=== PATIENT | female | born 1995 | race Caucasian/White ===

== ENCOUNTER 2020-03-07 01:19 | Inpatient (IN) | payer OTHER ==
--- NOTE | 2020-03-07 01:41 | PDOC ---
History of Present Illness - General Chief Complaint: Pain, Acute Stated Complaint: ABD PAIN Time Seen by Provider: 03/07/20 01:41 History Source: Patient Exam Limitations: No Limitations - History of Present Illness Initial Comments: 03/07/20 02:05 24y previously healthy F presenting w progressive worsening intermittent stabbing epigastric and RLQ pain, chills, nausea. Took antacid w/o relief. Denies cough, chest pain, SOB, vomiting, vaginal bleeding/discharge. Past History - Medical History Allergies/Adverse Reactions: Allergies Allergy/AdvReac Type Severity Reaction Status Date / Time No Known Allergies Allergy Verified 03/07/20 01:26 Home Medications: Ambulatory Orders NK [No Known Home Medication] 03/07/20 COPD: No - Immunization History Immunization Up to Date: Yes - Psycho-Social/Smoking History Smoking History: Never smoked Have you smoked in the past 12 months: No Information on smoking cessation initiated: No - Substance Abuse Hx (Audit-C & DAST Scrn) How often the patient has a drink containing alcohol: Never Score: In Men: 4 or > Positive; In Women: 3 or > Positive: 0 Screen Result (Pos requires Nsg. Audit-10AR): Negative In the last yr the pt used illegal drug/Rx for NonMed reason: No Score: Yes response is considered Positive: 0 Screen Result (Positive result requires Nsg. DAST-10): Negative Review of Systems - Review of Systems Constitutional: No: Chills, Fever HEENTM: No: Eye Pain, Nose Congestion Respiratory: No: Cough, Shortness of Breath Cardiac (ROS): No: Chest Pain, Lightheadedness ABD/GI: Yes: Nausea. No: Abdominal Distended, Constipated, Diarrhea, Vomiting : No: Burning, Dysuria Musculoskeletal: No: Back Pain, Joint Pain Integumentary: No: Bruising, Dryness Neurological: No: Headache, Seizure Psychiatric: No: Anxiety, Depression Endocrine: No: Intolerance to Cold, Intolerance to Heat Hematologic/Lymphatic: No: Anemia, Blood Clots *Physical Exam - Vital Signs Last Vital Signs Temp Pulse Resp BP Pulse Ox 97.8 F 84 20 122/82 98 03/07/20 01:27 03/07/20 01:27 03/07/20 01:27 03/07/20 01:27 07/26/20 01:27 - Physical Exam General Appearance: Yes: Nourished, Appropriately Dressed, Moderate Distress HEENT: positive: EOMI, ERNST, Normal Voice, Hearing Grossly Normal. negative: Scleral Icterus (R), Scleral Icterus (L) Respiratory/Chest: positive: Lungs Clear, Normal Breath Sounds. negative: Chest Tender, Respiratory Distress Cardiovascular: positive: Regular Rhythm, Regular Rate, S1, S2. negative: Edema, Murmur Gastrointestinal/Abdominal: positive: Normal Bowel Sounds, Tender (mild epigastric, moderate RLQ), Flat, Guarding (RLQ). negative: Organomegaly Musculoskeletal: negative: CVA Tenderness (R), CVA Tenderness (L) Integumentary: positive: Normal Color, Warm Neurologic: positive: Fully Oriented, Alert, Normal Mood/Affect, Normal Response ED Treatment Course - LABORATORY CBC & Chemistry Diagram: 03/07/20 02:12 03/07/20 02:12 Medical Decision Making - Medical Decision Making 03/07/20 04:19 CT A/P - acute appendicits, no abscess/free air EKG - NSR, HR 83, QTc 462, no ST changes WBC 14 --- 24y previously healthy F presenting w progressive worsening intermittent stabbing epigastric and RLQ pain, chills, nausea d/t acute appendicitis on CT No evidence of (neg) vs pancreatitis (lipase wnl) Given pepcid, zofran, morphine, 1L NS, zosyn, maintenance NS Consulted Dr Pink surgery - NPO, give zosyn, will evaluate Admit m/s hospitalist acute appendicitis PCP Cathy Discharge - Discharge Information Problems reviewed: Yes Clinical Impression/Diagnosis: Acute appendicitis Qualifiers: Acute appendicitis type: with localized peritonitis Appendicitis gangrene pres ence: without gangrene Appendicitis perforation presence: without perforation Appendicitis abscess presence: without abscess Qualified Code(s): K35.30 - Acute appendicitis with localized peritonitis, without perforation or gangrene Condition: Improved - Admission No - Follow up/Referral Referrals: Mary Morgan MD [Primary Care Provider] - - Patient Discharge Instructions - Post Discharge Activity
[2020-03-07] MEDS ORDERED: SODIUM CHLORIDE 0.9% 500 ML INFUS.BAG IV ONE (02:04)
[2020-03-07] MEDS ORDERED: ONDANSETRON 4 MG/2 ML VIAL IVPUSH ONE (02:04)
[2020-03-07] MEDS ORDERED: FAMOTIDINE 20 MG/50 ML IVPB 20 MG/50 ML MG IVPB ONE (02:04)
[2020-03-07] MEDS ORDERED: morphine CARPU-JECT 4 MG/1 ML DISP.SYRIN IVPUSH ONE (02:04)
[2020-03-07] MEDS ORDERED: MORPHINE SULFATE 2 MG/ML VIAL ONE (02:14)
[2020-03-07 02:27] LABS: BASO % 0.4 % (0-2.0); EOS % 0.7 % (0-4.5); HEMATOCRIT 40.1 % (32.4-45.2); HEMOGLOBIN 13.2 GM/dL (10.7-15.3); LYMPH % 17.6 % (8-40); MCH 31.2 pg (25.7-33.7); MCHC 32.9 g/dl (32.0-36.0); MEAN CELL VOLUME 94.7 fl (80-96); MEAN PLT VOLUME 8.6 fl (7.5-11.1); MONO % 5.6 % (3.8-10.2); NEUT % 75.7 % (42.8-82.8); PLATELET COUNT 221 K/MM3 (134-434); RBC 4.24 M/mm3 (3.60-5.2); RDW 13.2 % (11.6-15.6); WHITE BLOOD COUNT 14.5 K/mm3 (4.0-10.0)
[2020-03-07 02:39] LABS: INR 1.26 (0.83-1.09); PROTHROMBIN TIME (PATIENT) 14.9 SEC (9.7-13.0)
[2020-03-07 02:51] LABS: ALBUMIN 3.8 g/dl (3.4-5.0); BILIRUBIN,TOTAL 0.6 mg/dL (0.2-1); BLOOD UREA NITROGEN 19.9 mg/dL (7-18); CREATININE 1.1 mg/dL (0.55-1.3); POTASSIUM 3.9 mmol/L (3.5-5.1); TOT PROT 7.6 g/dl (6.4-8.2)
--- NOTE | 2020-03-07 03:35 | PDOC ---
Documentation entered by Osbaldo Downing SCRIBE, acting as scribe for Rebecca Coto MD. Rebecca Coto MD: This documentation has been prepared by the scribe, Osbaldo Downing SCRIBE, under my direction and personally reviewed by me in its entirety. I confirm that the documentation accurately reflects all work, treatment, procedures, and medical decision making performed by me. Attending Attestation - Resident Resident Name: Dima Morales - ED Attending Attestation I have performed the following: I have examined & evaluated the patient, The case was reviewed & discussed with the resident, I agree w/resident's findings & plan, Exceptions are as noted - HPI HPI: 24 yo F no significant PMH presents with abrupt onset of epigastric pain after eating dinner last night. Initially epigastric, later radiated to RLQ. Associated with chills, nausea. Denies vomiting, but noted that she was "spitting up" bloody material. She took rose seltzer without relief. - Physicial Exam PE: GENERAL: Awake, alert, and fully oriented, in no acute distress HEAD: No signs of trauma EYES: PERRLA, EOMI, sclera anicteric, conjunctiva clear ENT: Auricles normal inspection, hearing grossly normal, nares patent, oropharynx clear without exudates. Moist mucosa NECK: Normal ROM, supple, no lymphadenopathy, JVD, or masses LUNGS: Breath sounds equal, clear to auscultation bilaterally. No wheezes, and no crackles HEART: Regular rate and rhythm, normal S1 and S2, no murmurs, rubs or gallops ABDOMEN: Soft, +RLQ tenderness, +hyperactive bowel sounds. +Guarding, no rebound . No masses EXTREMITIES: Normal range of motion, no edema. No clubbing or cyanosis. No cords, erythema, or tenderness NEUROLOGICAL: Cranial nerves II through XII grossly intact. Normal speech, norm al gait. Motor and sensation intact SKIN: Warm, dry, normal turgor, no rashes or lesions noted. - Medical Decision Making Pt with abrupt onset abd pain, RLQ. R/o appy. Discharge - Discharge Information Problems reviewed: Yes Clinical Impression/Diagnosis: Acute appendicitis Qualifiers: Acute appendicitis type: with localized peritonitis Appendicitis gangrene presence: without gangrene Appendicitis perforation presence: without perforation Appendicitis abscess presence: without abscess Qualified Code(s): K35.30 - Acute appendicitis with localized peritonitis, without perforation or gangrene Condition: Improved - Follow up/Referral - Patient Discharge Instructions - Post Discharge Activity
[2020-03-07] MEDS ORDERED: SODIUM CHLORIDE 1,000 ML IV SCH (04:15)
[2020-03-07] MEDS ORDERED: PIPERACILLIN/TAZOB 4.5 GM 4.5 GM in DEXTROSE 5%-WATER 100 ML IVPB ONE (04:15)
[2020-03-07 04:18] LABS: URINE APPEARANCE CLEAR; URINE BILIRUBIN NEGATIVE (NEGATIVE); URINE COLOR YELLOW; URINE GLUCOSE (UA) NEGATIVE (NEGATIVE); URINE KETONE 15 mg/dl (NEGATIVE)
[2020-03-07 04:19] LABS: PH,URINE 6.5 (5.0-8.0); URINE LEUK ESTERASE N (NEGATIVE); URINE NITRITE NEGATIVE (NEGATIVE); URINE PROTEIN N (NEGATIVE)
[2020-03-07 04:23] LABS: EPI CELLS 67 /uL (0-25.1); HYALINE CASTS 2 /uL (0-3.1); URINE BACTERIA 798 /uL (0-1359); URINE RBC 3 /uL (0-23.9); URINE WBC 78 /uL (0-25.8)
[2020-03-07] MEDS ORDERED: PIPERACILLIN/TAZOB 4.5 GM 4.5 GM/100 ML BAG IVPB ONE (04:39)
[2020-03-07 05:57] VITALS: BMI 28.1
--- NOTE | 2020-03-07 06:05 | PN ---
Teaching Attending Note Name of Resident: Talha Jacobo ATTENDING PHYSICIAN STATEMENT I saw and evaluated the patient. I reviewed the resident's note and discussed the case with the resident. I agree with the resident's findings and plan as documented. SUBJECTIVE: OBJECTIVE: ASSESSMENT AND PLAN: 24 year old Female with no significant PMHx who presents with abrupt onset of RLQ epigastric pain. CT concerning for acute appendicitis No evidence for acute abdomen Agree with NPO, IV fluid hydration, zosyn Await surgery evaluation
--- NOTE | 2020-03-07 09:41 | PN ---
Progress Note (short form) - Note Progress Note: surgery 24f admitted with uncomplicated appendicitis. covid status unknown. no fever. plan- cont npo and iv zosyn. unless patient is failing medical management would not proceed with surgery unless covid status is negative as surgery during covid infection increases risk of respiratory failure, thromboembolic events, and . once covid status determined will make further recommendation. request for covid test made at 4am 03/07. currentlly pending.
[2020-03-07] MEDS ORDERED: morphine SULFATE 4 MG/ML VIAL IVPUSH PRN (09:46)
[2020-03-07] MEDS ORDERED: ACETAMINOPHEN 1000 MG/100 ML VIAL (NON FORMULARY) IVPB PRN (09:47)
[2020-03-07] MEDS ORDERED: ONDANSETRON 4 MG/2 ML VIAL IVPB PRN (09:49)
[2020-03-07] MEDS ORDERED: DEXTROSE 5%-WATER - 50 ML IVPB ONE ×2 (09:52→16:41)
[2020-03-07] MEDS ORDERED: PIPERACILLIN/TAZOBACTAM 3.375 GM VIAL IVPB ONE ×2 (09:52→16:41)
--- NOTE | 2020-03-07 09:57 | HP ---
CHIEF COMPLAINT: RLQ pain PCP: HISTORY OF PRESENT ILLNESS: Pt endorsed having weakness since the beginning of the week, but began having intermittent stabbing abdominal pain starting yesterday. At first the pain was in the epigastric area, and later involved her RLQ. She endorsed chills & nausea, but denied fevers. Sharita-seltzer and two 500 mg Tylenlol pills did not improve her symptoms. ER course was notable for: (1)BUN 19.9; WBCs 14 (2)UA: WBC 78, bacteria 798 (3) EKG: Normal sinus rhythm, possible L atrial enlargment; QTC 420, 65 bpm (4)CTAP: acute appendicictis; no abscess/free air (5) ED gave pepcid, zofran morphine, 1 L NS, zosyn, NPO Recent Travel: denies PAST MEDICAL HISTORY: prone to keloid formation LMP: end January 2020 PAST SURGICAL HISTORY: denies Social History: Smoking:denies Alcohol: socially Drugs: denies lives w/ her and his mother Allergies No Known Allergies Allergy (Verified 03/07/20 01:26) HOME MEDICATIONS: Home Medications Medication Instructions Recorded NK [No Known Home Medication] 03/07/20 REVIEW OF SYSTEMS CONSTITUTIONAL: Absent: fever, chills, diaphoresis, generalized weakness, malaise, loss of appetite, weight change HEENT: Absent: rhinorrhea, nasal congestion, throat pain, throat swelling, difficulty swallowing, mouth swelling, ear pain, eye pain, visual changes CARDIOVASCULAR: Absent: chest pain, syncope, palpitations, irregular heart rate, lightheadedness, peripheral edema RESPIRATORY: Absent: cough, shortness of breath, dyspnea with exertion, orthopnea, wheezing, stridor, hemoptysis GASTROINTESTINAL: abdominal pain, but improved after morphine Absent: abdominal distension, nausea, vomiting, diarrhea, constipation, melena, hematochezia GENITOURINARY: Absent: dysuria, frequency, urgency, hesitancy, hematuria, flank pain, genital pain MUSCULOSKELETAL: Absent: myalgia, arthralgia, joint swelling, back pain, neck pain SKIN: Absent: rash, itching, pallor HEMATOLOGIC/IMMUNOLOGIC: Absent: easy bleeding, easy bruising, lymphadenopathy, frequent infections ENDOCRINE: Absent: unexplained weight gain, unexplained weight loss, heat intolerance, cold intolerance NEUROLOGIC: Absent: headache, focal weakness or paresthesias, dizziness, unsteady gait, seizure, mental status changes, bladder or bowel incontinence PSYCHIATRIC: Absent: anxiety, depression, suicidal or homicidal ideation, hallucinations. PHYSICAL EXAMINATION Vital Signs - 24 hr 03/07/20 03/07/20 03/07/20 01:27 04:28 04:33 Temperature 97.8 F 97.3 F L Pulse Rate 84 Pulse Rate [ 80 Left Radial] Respiratory 20 20 Rate Blood Pressure 122/82 Blood Pressure 132/78 [Left Arm] O2 Sat by Pulse 98 99 99 Oximetry (%) 03/07/20 03/07/20 03/07/20 05:40 05:45 05:52 Temperature 98.8 F 98.8 F Pulse Rate 73 73 Pulse Rate [ Left Radial] Respiratory 18 18 Rate Blood Pressure 107/48 L 107/48 L Blood Pressure [Left Arm] O2 Sat by Pulse 99 98 98 Oximetry (%) GENERAL: Awake, alert, and fully oriented, in no acute distress. HEENT: Normal with no signs of trauma. No lid lag.Ears normal, nares patent. MMM LUNGS: Breath sounds equal, clear to auscultation bilaterally. No wheezes, and no crackles. No accessory muscle use. HEART: Regular rate and rhythm, normal S1 and S2 without murmur, rub or gallop. ABDOMEN: Soft, not distended, normoactive bowel sounds. TTP in epigastric and RLQ, no guarding, + rebound MUSCULOSKELETAL: Normal range of motion at all joints. No bony deformities or tenderness. No CVA tenderness. UPPER EXTREMITIES: 2+ pulses, warm, well-perfused. No cyanosis. No clubbing. No peripheral edema. LOWER EXTREMITIES: 2+ pulses, warm, well-perfused. No calf tenderness. No peripheral edema. NEUROLOGICAL: Normal speech. Normal gait. PSYCHIATRIC: Cooperative. Good eye contact. Appropriate mood and affect. Laboratory Results - last 24 hr 03/07/20 03/07/20 03/07/20 02:12 02:12 02:12 WBC 14.5 H RBC 4.24 Hgb 13.2 Hct 40.1 MCV 94.7 MCH 31.2 MCHC 32.9 RDW 13.2 Plt Count 221 MPV 8.6 Absolute Neuts (auto) 11.0 H Neutrophils % 75.7 Lymphocytes % 17.6 Monocytes % 5.6 Eosinophils % 0.7 Basophils % 0.4 Nucleated RBC % 0 PT with INR 14.90 H INR 1.26 H Sodium Potassium Chloride Carbon Dioxide Anion Gap BUN Creatinine Est GFR (CKD-EPI)AfAm Est GFR (CKD-EPI)NonAf Random Glucose Calcium Total Bilirubin AST ALT Alkaline Phosphatase Total Protein Albumin Lipase Serum , Qual Negative Urine Color Urine Appearance Urine pH Ur Specific [place] Urine Protein Urine Glucose (UA) Urine Ketones Urine Blood Urine Nitrite Urine Bilirubin Urine Urobilinogen Ur Leukocyte Esterase Urine WBC (Auto) Urine RBC (Auto) Urine Casts (Auto) U Epithel Cells (Auto) Urine Bacteria (Auto) Blood Type Antibody Screen 03/07/20 03/07/20 03/07/20 02:12 02:12 03:22 WBC RBC Hgb Hct MCV MCH MCHC RDW Plt Count MPV Absolute Neuts (auto) Neutrophils % Lymphocytes % Monocytes % Eosinophils % Basophils % Nucleated RBC % PT with INR INR Sodium 138 Potassium 3.9 Chloride 107 Carbon Dioxide 25 Anion Gap 7 L BUN 19.9 H Creatinine 1.1 Est GFR (CKD-EPI)AfAm 80.81 Est GFR (CKD-EPI)NonAf 69.72 Random Glucose 89 Calcium 9.0 Total Bilirubin 0.6 AST 13 L ALT 13 Alkaline Phosphatase 54 Total Protein 7.6 Albumin 3.8 Lipase 98 Serum , Qual Urine Color Yellow Urine Appearance Clear Urine pH 6.5 Ur Specific [place] 1.065 H Urine Protein N Urine Glucose (UA) Negative Urine Ketones 15 mg/dl Urine Blood N Urine Nitrite Negative Urine Bilirubin Negative Urine Urobilinogen 1.0 Ur Leukocyte Esterase N Urine WBC (Auto) 78 Urine RBC (Auto) 3 Urine Casts (Auto) 2 U Epithel Cells (Auto) 67 Urine Bacteria (Auto) 798 Blood Type A POSITIVE Antibody Screen Negative ASSESSMENT/PLAN: 24 F PMH keloids p/w epigastric & RLQ pain. Admitted for appendicitis. #Appendicitis -CTAP: acute appendicitis; no abscess/free air -sgy c/s appreciated. c/w IV Zosyn -c/w zofran & morphine -NPO #DVT ppx SCDs #FEN NS monitor lytes NPO #DISPO maintain med surg Visit type - Emergency Visit Emergency Visit: Yes ED Registration Date: 03/07/20 Care time: The patient presented to the Emergency Department on the above date and was hospitalized for further evaluation of their emergent condition. - New Patient This patient is new to me today: Yes Date on this admission: 03/07/20 - Critical Care Critical Care patient: No ATTENDING PHYSICIAN STATEMENT I saw and evaluated the patient. I reviewed the resident's note and discussed the case with the resident. I agree with the resident's findings and plan as documented. SUBJECTIVE: OBJECTIVE: ASSESSMENT AND PLAN:
[2020-03-07] MEDS ORDERED: PIPERACILLIN/TAZOB 3.375 GM 3.375 GM in DEXTROSE 5%-WATER - 50 ML IVPB SCH (10:00)
[2020-03-07 10:01] LABS: BASO % 0.3 % (0-2.0); EOS % 0.1 % (0-4.5); HEMATOCRIT 38.4 % (32.4-45.2); HEMOGLOBIN 12.6 GM/dL (10.7-15.3); LYMPH % 15.4 % (8-40); MCH 31.1 pg (25.7-33.7); MCHC 32.7 g/dl (32.0-36.0); MEAN CELL VOLUME 95.2 fl (80-96); MEAN PLT VOLUME 8.8 fl (7.5-11.1); MONO % 7.1 % (3.8-10.2); NEUT % 77.1 % (42.8-82.8); PLATELET COUNT 208 K/MM3 (134-434); RBC 4.03 M/mm3 (3.60-5.2); RDW 13.2 % (11.6-15.6); WHITE BLOOD COUNT 12.3 K/mm3 (4.0-10.0)
[2020-03-07 10:29] LABS: ALBUMIN 3.3 g/dl (3.4-5.0); BILIRUBIN,TOTAL 0.8 mg/dL (0.2-1); BLOOD UREA NITROGEN 14.3 mg/dL (7-18); CALCIUM 8.2 mg/dL (8.5-10.1); MAGNESIUM 2.1 mg/dL (1.8-2.4); PHOSPHOROUS 3.8 mg/dL (2.5-4.9); TOT PROT 6.6 g/dl (6.4-8.2)
--- NOTE | 2020-03-07 12:52 | CON.ID ---
Consult Consult Specialty:: infectious disease Referred by:: hospitalist Reason for Consultation:: appendicitis - History of Present Illness Chief Complaint: abdominal pain History of Present Illness: 24 yo female otherwise healthy, never hospitalized developed malaise and fatigue on Sunday- no cough went to [place] and got covid screened on sunday she develped LLQ pain and midepigastric pain and vomiting and came to ED no fevers +dysuria never hospitalized - History Source History Provided By: Patient Limitations to Obtaining History: No Limitations - Past Medical History Infectious Disease: Yes: Other (UTI) - Past Surgical History Past Surgical History: Yes: None - Alcohol/Substance Use Hx Alcohol Use: No - Smoking History Smoking history: Never smoked Have you smoked in the past 12 months: No - Social History Usual Living Arrangement: With Spouse ADL: Independent Occupation: working from home Place of : [facility] History of Recent Travel: No Home Medications - Allergies Allergies/Adverse Reactions: Allergies Allergy/AdvReac Type Severity Reaction Status Date / Time No Known Allergies Allergy Verified 03/07/20 01:26 - Home Medications Home Medications: Ambulatory Orders NK [No Known Home Medication] 03/07/20 Family Medical History Family History: Unremarkable Review of Systems - Review of Systems Constitutional: denies: Fever Eyes: reports: No Symptoms HENT: reports: No Symptoms Neck: reports: No Symptoms Cardiovascular: reports: No Symptoms Respiratory: reports: No Symptoms Gastrointestinal: reports: Abdominal Pain, Vomiting. denies: Diarrhea Genitourinary: reports: Dysuria Physical Exam Vital Signs: Vital Signs Temperature 98.8 F 03/07/20 05:52 Pulse Rate 73 03/07/20 05:52 Respiratory Rate 18 03/07/20 05:52 Blood Pressure 107/48 L 03/07/20 05:52 O2 Sat by Pulse Oximetry (%) 98 03/07/20 05:52 Constitutional: Yes: Well Nourished, No Distress Eyes: Yes: Conjunctiva Clear HENT: Yes: Atraumatic, Normocephalic Neck: Yes: Supple Cardiovascular: Yes: Regular Rate and Rhythm Respiratory: Yes: Regular, CTA Bilaterally Gastrointestinal: Yes: Normal Bowel Sounds, Soft, Tenderness (RLQ and midepigastric) ...Rectal Exam: Yes: Deferred Edema: No Integumentary: Yes: WNL Psychiatric: Yes: Alert, Oriented Labs: CBC, BMP 03/07/20 08:49 03/07/20 08:49 Imaging - Results Cat Scan: Report Reviewed Problem List - Problems (1) Acute appendicitis Code(s): K35.80 - UNSPECIFIED ACUTE APPENDICITIS Qualifiers: Acute appendicitis type: with localized peritonitis Appendicitis gangrene presence: without gangrene Appendicitis perforation presence: without perforation Appendicitis abscess presence: without abscess Qualified Code(s): K35.30 - Acute appendicitis with localized peritonitis, without perforation or gangrene (2) UTI (urinary tract infection) Code(s): N39.0 - URINARY TRACT INFECTION, SITE NOT SPECIFIED Assessment/Plan continue zosyn for surgical f/u f/u covid pcr f/u cultures
[2020-03-07] MEDS: PIPERACILLIN/TAZOB 3.375 GM 3.375 GM in DEXTROSE 5%-WATER - 50 ML IVPB SCH ×2 (14:05→17:17)
--- NOTE | 2020-03-07 16:04 | PN ---
Progress Note (short form) - Note Progress Note: patient seen and examined at bedside with her mom at bedside. Endorses abdominal pain is well controlled with morphine. THirsty. Afebrile. Last time she vomited was this Am and it was bilious. Nausea controlled with Zofran. Started on Zosyn. ID consult noted and appreciated. Denies cough. Went to [place] 2 weeks ago. No COVID-19 symptoms. On exam AAOx3. NAD. Dry mucous membranes. CTAB RRR S1 S2 no murmurs ABD is soft, TTP in all quadrants to light palpation but most tenderness in RLQ. no edema 2+ DP pulses bilaterally Continue Zosyn NPO IVF Antiemetics pain control for appendectomy pending COVID-19 results change IVF to LR and increase from 125ml/hr to 150ml/hr. Hyperchloremic Discussed with Dr. Pink over the phone. for further information please see admitting H&P done earlier today. Visit type - Emergency Visit Emergency Visit: Yes ED Registration Date: 03/07/20 Care time: The patient presented to the Emergency Department on the above date and was hospitalized for further evaluation of their emergent condition. - New Patient This patient is new to me today: Yes Date on this admission: 03/07/20 - Critical Care Critical Care patient: No
[2020-03-07] MEDS ORDERED: PT OWN MED DRAWER 7, Y5N ONE (17:14)
[2020-03-07] MEDS: LACTATED RINGERS SOLUTION 1,000 ML/1,000 ML INFUS.BAG IV SCH (17:16)
--- NOTE | 2020-03-07 17:23 | EKG ---
Test Reason : Blood Pressure : / mmHG Vent. Rate : 065 BPM Atrial Rate : 065 BPM P-R Int : 176 ms QRS Dur : 078 ms QT Int : 404 ms P-R-T Axes : 066 078 028 degrees QTc Int : 420 ms NORMAL SINUS RHYTHM POSSIBLE LEFT ATRIAL ENLARGEMENT BORDERLINE ECG NO PREVIOUS ECGS AVAILABLE Confirmed by MD Tari, Walter ([id number]) on 03/07/2020 5:22:35 PM Referred By: Confirmed By:Walter Marc MD
[2020-03-08] MEDS ORDERED: PIPERACILLIN/TAZOBACTAM 3.375 GM VIAL IVPB ONE ×3 (00:33→18:31)
[2020-03-08] MEDS ORDERED: DEXTROSE 5%-WATER - 50 ML IVPB ONE ×3 (00:33→18:32)
[2020-03-08] MEDS: PIPERACILLIN/TAZOB 3.375 GM 3.375 GM in DEXTROSE 5%-WATER - 50 ML IVPB SCH ×4 (02:17→18:42)
[2020-03-08 08:26] LABS: BASO % 0.4 % (0-2.0); EOS % 0.7 % (0-4.5); HEMATOCRIT 34.9 % (32.4-45.2); HEMOGLOBIN 11.6 GM/dL (10.7-15.3); LYMPH % 20.6 % (8-40); MCH 31.5 pg (25.7-33.7); MCHC 33.3 g/dl (32.0-36.0); MEAN CELL VOLUME 94.7 fl (80-96); MEAN PLT VOLUME 8.7 fl (7.5-11.1); MONO % 7.2 % (3.8-10.2); NEUT % 71.1 % (42.8-82.8); PLATELET COUNT 188 K/MM3 (134-434); RBC 3.68 M/mm3 (3.60-5.2)
[2020-03-08 08:44] LABS: ALBUMIN 2.9 g/dl (3.4-5.0); BILIRUBIN,TOTAL 1.1 mg/dL (0.2-1); BLOOD UREA NITROGEN 8.8 mg/dL (7-18); CALCIUM 7.9 mg/dL (8.5-10.1); CREATININE 0.9 mg/dL (0.55-1.3); POTASSIUM 3.8 mmol/L (3.5-5.1)
[2020-03-08] MEDS: LACTATED RINGERS SOLUTION 1,000 ML/1,000 ML INFUS.BAG IV SCH ×3 (09:19→18:42)
--- NOTE | 2020-03-08 09:35 | PN ---
Physical Exam: SUBJECTIVE: Patient seen and examined at the bedside. awake, alert, calm. OBJECTIVE: Patient is a 24 year old female with a past medical history of ovarian cysts, she is not on any home medications. Patient presents to the ED on 03/07/2020 with epigastric & RLQ pain. She is being admitted for appendicitis and IV antibiotics. Pending surgical interventions once covid resulted.. Period Temp Pulse Resp BP Sys/Pacheco Pulse Ox Last 24 Hr 98.1 F-99.4 F 71-98 18-20 112-124/60-70 98-100 GENERAL: The patient is awake, alert, and fully oriented, in no acute distress. HEAD: Normal with no signs of trauma. EYES: PERRL, extraocular movements intact, sclera anicteric, conjunctiva clear. No ptosis. ENT: Ears normal, nares patent, oropharynx clear without exudates NECK: Trachea midline, full range of motion, supple. LUNGS: Breath sounds equal, clear to auscultation bilaterally, no wheezes HEART: Regular rate and rhythm ABDOMEN: Soft, nontender, nondistended, normoactive bowel sounds - denies pain currently EXTREMITIES: mild edema of bilateral hands NEUROLOGICAL: Normal speech, gait not observed. PSYCH: Normal mood, normal affect. SKIN: Warm, dry, normal turgor, no rashes or lesions noted Laboratory Results - last 24 hr 03/07/20 03/07/20 03/08/20 08:49 08:49 07:00 WBC 12.3 H 9.0 RBC 4.03 3.68 Hgb 12.6 11.6 Hct 38.4 34.9 MCV 95.2 94.7 MCH 31.1 31.5 MCHC 32.7 33.3 RDW 13.2 13.0 Plt Count 208 188 MPV 8.8 8.7 Absolute Neuts (auto) 9.5 H 6.4 Neutrophils % 77.1 71.1 Lymphocytes % 15.4 20.6 D Monocytes % 7.1 7.2 Eosinophils % 0.1 D 0.7 D Basophils % 0.3 0.4 Nucleated RBC % 0 0 Sodium 140 Potassium 4.0 Chloride 109 H Carbon Dioxide 22 Anion Gap 8 BUN 14.3 Creatinine 1.0 Est GFR (CKD-EPI)AfAm 90.68 Est GFR (CKD-EPI)NonAf 78.24 Random Glucose 84 Calcium 8.2 L Phosphorus 3.8 Magnesium 2.1 Total Bilirubin 0.8 AST 11 L ALT 13 Alkaline Phosphatase 49 Total Protein 6.6 Albumin 3.3 L 03/08/20 07:00 WBC RBC Hgb Hct MCV MCH MCHC RDW Plt Count MPV Absolute Neuts (auto) Neutrophils % Lymphocytes % Monocytes % Eosinophils % Basophils % Nucleated RBC % Sodium 140 Potassium 3.8 Chloride 109 H Carbon Dioxide 22 Anion Gap 9 BUN 8.8 Creatinine 0.9 Est GFR (CKD-EPI)AfAm 103.00 Est GFR (CKD-EPI)NonAf 88.87 Random Glucose 71 L Calcium 7.9 L Phosphorus Magnesium 2.0 Total Bilirubin 1.1 H AST 8 L ALT 11 L Alkaline Phosphatase 43 L Total Protein 6.0 L Albumin 2.9 L Active Medications Generic Name Dose Route Start Last Admin Trade Name Freq PRN Reason Stop Dose Admin Acetaminophen 1,000 mg 03/07/20 09:47 Ofirmev Injection - IVPB 03/08/20 09:47 Q6H PRN pain 1-5 or fever Piperacillin Sod/Tazobactam 50 mls @ 100 mls/hr 03/07/20 18:00 03/08/20 09:18 Sod 3.375 gm/ Dextrose IVPB 100 mls/hr Q8H-IV RAVINDER Administration Protocol Lactated Ringer's 1,000 ml in 1,000 mls @ 150 mls/hr 03/07/20 16:15 03/08/20 09:19 Lactated Ringers Solution IV 150 mls/hr ASDIR RAVINDER Administration Morphine Sulfate 4 mg 03/07/20 09:46 03/07/20 09:57 Morphine Sulfate IVPUSH 4 mg Q4H PRN Administration PAIN LEVEL 6-10 Ondansetron HCl 4 mg 03/07/20 09:49 03/07/20 10:14 Zofran Injection IVPB 4 mg Q6H PRN Administration NAUSEA ASSESSMENT/PLAN: Problem List - Problems (1) Acute appendicitis Assessment/Plan: for surgical interventions once covid results are negative maintain npo on zosyn iv hydration pain management Code(s): K35.80 - UNSPECIFIED ACUTE APPENDICITIS Qualifiers: Acute appendicitis type: with localized peritonitis Appendicitis gangrene presence: without gangrene Appendicitis perforation presence: without perforation Appendicitis abscess presence: without abscess Qualified Code(s): K35.30 - Acute appendicitis with localized peritonitis, without perforation or gangrene (2) UTI (urinary tract infection) Assessment/Plan: ua positive, urine culture negative. she is asymptomatic Code(s): N39.0 - URINARY TRACT INFECTION, SITE NOT SPECIFIED (3) DVT prophylaxis Assessment/Plan: SCDs bilaterally Code(s): Z29.9 - ENCOUNTER FOR PROPHYLACTIC MEASURES, UNSPECIFIED Visit type - Emergency Visit Emergency Visit: Yes ED Registration Date: 03/07/20 Care time: The patient presented to the Emergency Department on the above date and was hospitalized for further evaluation of their emergent condition. - New Patient This patient is new to me today: Yes Date on this admission: 03/08/20 - Critical Care Critical Care patient: No - Discharge Referral Referred to [facility] No
--- NOTE | 2020-03-08 10:55 | PN ---
Progress Note (short form) - Note Progress Note: GENERAL SURGERY 24 yo F admitted with acute (uncomplicated) appendicitis. Dr. Pink was waiting for Covid results to come back....officially negative. Going to OR today for lap appy at 13:30hrs Cont NPO IVF IVABX
[2020-03-08] MEDS ORDERED: ONDANSETRON 4 MG/2 ML VIAL IVPUSH PRN (15:36)
[2020-03-08] MEDS ORDERED: ACETAMINOPHEN INJECTION 100 ML IVPB ONE (15:38)
[2020-03-08] MEDS ORDERED: LIDOCAINE HCL/PF 2% SDV 5ML VIAL ONE (15:41)
[2020-03-08] MEDS ORDERED: SUCCINYLCHOLINE CHLORIDE 200 MG/10 ML SYRINGE ONE (15:42)
[2020-03-08] MEDS ORDERED: ROCURONIUM BROMIDE 50 MG/5 ML SYRINGE ONE (15:42)
[2020-03-08] MEDS ORDERED: LACTATED RINGERS SOLUTION 1,000 ML IV SCH (15:45)
[2020-03-08] MEDS ORDERED: morphine SULFATE 4 MG/ML VIAL IVPB PRN (15:50)
[2020-03-08] MEDS ORDERED: oxyCODONE HCL 5 MG TABLET PO PRN (15:50)
[2020-03-08] MEDS ORDERED: ACETAMINOPHEN 325 MG TABLET (FP) PO PRN (15:50)
[2020-03-08] MEDS ORDERED: BUPIVACAINE HCL 50 ML ONE (15:53)
--- NOTE | 2020-03-08 15:53 | OP ---
Operative Note - Note: Operative Date: 03/08/20 Pre-Operative Diagnosis: acute appendicitis Operation: laparoscopic appendectomy, lavage Findings: thickened, inflamed, non perforated appendix Surgeon: Vitor Pink Anesthesiologist/MOTOR SETTER: Lisandra Frank Estimated Blood Loss (mls): 10 Operative Report Dictated: Yes
[2020-03-08] MEDS ORDERED: GLYCOPYRROLATE 0.2 MG/1 ML VIAL ONE (16:19)
[2020-03-08] MEDS ORDERED: NEOSTIGMINE METHYLSULFATE 0.5 MG/1 ML - 10 ML MDV ONE (16:19)
[2020-03-08] MEDS ORDERED: MINERAL OIL/PETROLATUM,WHITE 3.5 GM TUBE ONE (16:19)
[2020-03-08] MEDS ORDERED: ONDANSETRON 4 MG/2 ML VIAL ONE (16:22)
[2020-03-08] MEDS ORDERED: DEXAMETHASONE SOD PHOSPHATE 4 MG/1 ML VIAL ONE (16:22)
[2020-03-08] MEDS ORDERED: ESMOLOL HCL 100,000 MCG/10 ML VIAL ONE (16:59)
--- NOTE | 2020-03-08 19:02 | CONS ---
DATE OF CONSULTATION: 03/08/2020 REASON FOR CONSULTATION: Acute appendicitis. This is an emergency consultation requested by the emergency room physician. BRIEF HISTORY: A 24-year-old healthy female who approximately 3 days ago had some slight nausea. She went for outpatient COVID testing. The next day which was Sunday her pain was worse, she had more nausea, and late that night she came into the [facility] emergency room. Overnight she was diagnosed with acute appendicitis based on CAT scan. She was admitted to the hospital, started with medical management and COVID testing. While being treated with antibiotics her white blood cell count normalized. She had no fevers, and her symptoms vastly improved. Request was made for surgical evaluation. PAST MEDICAL HISTORY: Negative. PAST SURGICAL HISTORY: Nil. SOCIAL HISTORY: Positive for occasional alcohol consumptions. Negative for tobacco. FAMILY HISTORY: Negative immediate family. ALLERGIES: No known drug allergies. MEDICATION: She takes no medications. REVIEW OF SYSTEMS: General: Denies fatigue or malaise. Cardiac: Denies chest pain or palpitations. Respiratory: Denies shortness of breath or wheeze. Gastrointestinal: Currently minimal nausea. Denies diarrhea. Denies blood in her stool. She has mild abdominal pain mostly in the right lower quadrant. Genitourinary: Denies dysuria. Musculoskeletal: Denies joint pain. Psychiatric: Denies anxiety, depression, or hearing voices. PHYSICAL EXAMINATION: General: This is well-developed, well-nourished 24-year-old female in no distress. Vital signs: She is afebrile. Her vital signs are stable. HEENT: Head is normocephalic. Sclerae anicteric. Neck: Supple. Chest: Clear. Abdomen: Soft. There are no surgical scars. She is nondistended. She has mild generalized abdominal tenderness. She has significant right lower quadrant tenderness with mild rebound. She has no guarding. Extremities: No edema. LABORATORY: White blood cell count is 9.0 without a shift, on admission it was 14.5. Her chemistries are unremarkable. Her COVID test is negative. Her imaging is significant for CAT scan of her abdomen and pelvis which shows acute appendicitis without abscess formation. There is also free pelvic fluid and bilateral ovarian cysts. ASSESSMENT: This is a 24-year-old female who presented with abdominal pain and nausea. CAT scan is consistent with acute appendicitis. There is also some pelvic fluid which is likely inflammatory from the appendix. She had COVID testing done on March 07 early in the morning. She was treated medically awaiting results of COVID test. She seems to have responded well to medical management with normalization of her white blood cell count and no fevers, and improvement in her symptoms. Now that her COVID test is negative, she is at minimal risk of surgery and would recommend proceeding with appendectomy. This will likely decrease her length of stay and will prevent future recurrence as well as be able to pathologically evaluate the appendix. Patient is agreeable to surgery, risks and benefits have been explained to the patient in detail. This are including but not limited to the possible conversion to open, possible injury to viscera or bladder, possibility of staple line dehiscence, possibility of infection, possibility of future hernia, possibility of future obstruction. Plus a multitude of medical risks including but not limited to cardiac, neurologic, pulmonary, and vascular complications, even . The patient also understands that although her COVID test is negative, this could be a false negative and if in fact she does indeed have the virus, that general anesthesia and surgery increase her risk of respiratory failure and thromboembolic complications, even . At this point, patient wishes to proceed with surgery. Would continue intravenous Zosyn. Continue n.p.o., and will proceed with appendectomy. If the appendix is not ruptured, she is likely to be discharged in the next 24 to 48 hours. DO TIMBO SINGH/[id number]
[2020-03-08] MEDS: FAMOTIDINE 20 MG/50 ML IVPB 20 MG/50 ML MG IVPB SCH (21:48)
[2020-03-09] MEDS ORDERED: PIPERACILLIN/TAZOBACTAM 3.375 GM VIAL IVPB ONE ×2 (01:43→08:40)
[2020-03-09] MEDS ORDERED: DEXTROSE 5%-WATER - 50 ML IVPB ONE ×2 (01:43→08:40)
[2020-03-09] MEDS: PIPERACILLIN/TAZOB 3.375 GM 3.375 GM in DEXTROSE 5%-WATER - 50 ML IVPB SCH ×2 (01:48→09:02)
[2020-03-09] MEDS: LACTATED RINGERS SOLUTION 1,000 ML/1,000 ML INFUS.BAG IV SCH (03:18)
[2020-03-09 07:36] VITALS: PULSE 60
[2020-03-09 09:05] VITALS: BP 114/56; TEMP 97.8
--- NOTE | 2020-03-09 09:33 | PN ---
Progress Note, Physician History of Present Illness: 24 year old female with a past medical history of ovarian cysts, she is not on any home medications. Patient presents to the ED on 03/07/2020 with epigastric & RLQ pain. POD #1 s/p laparoscopic appendectomy - Current Medication List Current Medications: Active Medications Acetaminophen (Tylenol -) 650 mg PO Q4H PRN PRN Reason: FEVER Last Admin: 03/08/20 21:49 Dose: 650 mg Documented by: Enoxaparin Sodium (Lovenox -) 40 mg SQ DAILY RAVINDER Last Admin: 03/09/20 09:02 Dose: 40 mg Documented by: Famotidine/Sodium Chloride (Pepcid 20 Mg Premixed Ivpb -) 20 mg in 50 mls @ 100 mls/hr IVPB BID RAVINDER Last Admin: 03/08/20 21:48 Dose: 100 mls/hr Documented by: Piperacillin Sod/Tazobactam (Sod 3.375 gm/ Dextrose) 50 mls @ 100 mls/hr IVPB Q8H-IV RAVINDER; Protocol Last Admin: 03/09/20 09:02 Dose: 100 mls/hr Documented by: Morphine Sulfate (Morphine Sulfate) 8 mg IVPB Q3H PRN PRN Reason: PAIN LEVEL 7 - 10 Oxycodone HCl (Roxicodone -) 7.5 mg PO Q4H PRN PRN Reason: PAIN LEVEL 4 - 6 Last Admin: 03/09/20 08:55 Dose: 7.5 mg Documented by: - Objective Vital Signs: Vital Signs Temperature 97.8 F 03/09/20 09:04 Pulse Rate 60 03/09/20 09:04 Respiratory Rate 20 03/09/20 09:04 Blood Pressure 114/56 L 03/09/20 09:04 O2 Sat by Pulse Oximetry (%) 98 03/09/20 09:04 Labs: CBC, BMP 03/08/20 07:00 03/08/20 07:00 INR, PTT INR 1.26 (0.83-1.09) H 03/07/20 02:12 Problem List - Problems (1) COVID-19 ruled out Code(s): Z03.818 - ENCNTR FOR OBS FOR SUSP EXPSR TO OTH BIOLG AGENTS RULED OUT (2) Appendicitis Code(s): K37 - UNSPECIFIED APPENDICITIS (3) S/P appendectomy Code(s): Z90.49 - ACQUIRED ABSENCE OF OTHER SPECIFIED PARTS OF DIGESTIVE TRACT (4) Prophylactic measure Code(s): Z29.9 - ENCOUNTER FOR PROPHYLACTIC MEASURES, UNSPECIFIED
[2020-03-09] MEDS: FAMOTIDINE 20 MG/50 ML IVPB 20 MG/50 ML MG IVPB SCH (09:38)
--- NOTE | 2020-03-09 09:58 | PN ---
Progress Note (short form) - Note Progress Note: Anesthesia Post op/pain Pt seen and examined S:Alert and awake, comfortable O: Vital Signs Temperature 97.8 F 03/09/20 09:04 Pulse Rate 60 03/09/20 09:04 Respiratory Rate 20 03/09/20 09:04 Blood Pressure 114/56 L 03/09/20 09:04 O2 Sat by Pulse Oximetry (%) 98 03/09/20 09:04 CBC, BMP 03/08/20 07:00 03/08/20 07:00 A/P Current Active Problems Acute appendicitis (Acute) Appendicitis (Acute) COVID-19 ruled out (Acute) DVT prophylaxis (Acute) Prophylactic measure (Acute) S/P appendectomy (Acute) S/P appy (Acute) UTI (urinary tract infection) (Acute) s/p Doing well post op Continue current care Vitor Herbert M.D.
[2020-03-09] MEDS ORDERED: ENOXAPARIN NA (PORCINE) 40 MG/0.4 ML DISP.SYRIN SQ SCH (10:00)
--- NOTE | 2020-03-09 10:34 | PN ---
Progress Note (short form) - Note Progress Note: POD 1, s/p laparoscopic appendectomy Pt seen and examined. States she is feeling well this morning. No issues overnight. Tolerating small amounts of food. Passed a small amount of flatus. Has been oob ambulating. Denies cp/sob, n/v/d. Vital Signs Temp 97.8 F 03/09/20 09:04 Pulse 60 03/09/20 09:04 Resp 20 03/09/20 09:04 BP 114/56 L 03/09/20 09:04 Pulse Ox 98 03/09/20 09:04 Intake & Output 03/08/20 03/08/20 03/09/20 11:59 23:59 11:59 Intake Total 1400 2450 Output Total 520 900 Balance 1400 1930 -900 Intake: IV 1350 2400 LACTATED RINGERS SOLUTION 1350 1200 1,000 ml In 1,000 ml @ 150 mls/hr IV ASDIR RAVINDER Rx#:[id number] IVPB 50 50 Oral 0 Output: Urine 500 900 Void 900 Estimated Blood Loss 20 Other: Voiding Method Toilet Toilet # Unmeasured Voids Void 2 3 3 CBC, BMP 03/08/20 07:00 03/08/20 07:00 Gen: awake, alert, nad. Sitting in chair eating breakfast. Resp: unlabored on RA Abdo: soft, minimally distended, +ttp at umbilicus, incisions c/d/i with dermabond in place, no erythema or drainage A/P: 24 y/o F w/ PMHx keloids a/w epigastric & RLQ pain, found to have appendicitis, now POD 1, s/p laparoscopic appendectomy. afebrile, vss leukocytosis resolved -Plan for d/c home today -Continue diet -Augmentin 500-125mg bid x 5 days for d/c -Pt should f/u in the office in 1 week. message sent to attending regarding above (Dr Pink)
--- NOTE | 2020-03-09 12:48 | DS ---
Physical Exam: SUBJECTIVE: Patient seen and examined 24 year old female with a past medical history of ovarian cysts, she is not on any home medications. Patient presents to the ED on 03/07/2020 with epigastric & RLQ pain. POD #1 s/p laparoscopic appendectomy. OBJECTIVE: Vital Signs Period Temp Pulse Resp BP Sys/Pacheco Pulse Ox Last 24 Hr 97.8 F-98.8 F 56-86 11-20 105-126/56-81 95-100 PHYSICAL EXAM GENERAL: The patient is awake, alert, and fully oriented, in no acute distress. HEAD: Normal with no signs of trauma. EYES: PERRL, extraocular movements intact, sclera anicteric, conjunctiva clear. ENT: Ears normal, nares patent, oropharynx clear without exudates, moist mucous membranes. NECK: Trachea midline, full range of motion, supple. LUNGS: Breath sounds equal, clear to auscultation bilaterally, no wheezes, no crackles, no accessory muscle use. HEART: Regular rate and rhythm, S1, S2 without murmur, rub or gallop. ABDOMEN: Soft, nontender, nondistended, normoactive bowel sounds, no guarding, no rebound, no hepatosplenomegaly, no masses. EXTREMITIES: 2+ pulses, warm, well-perfused, no edema. NEUROLOGICAL: Cranial nerves II through XII grossly intact. Normal speech, gait not observed. PSYCH: Normal mood, normal affect. SKIN: Warm, dry, normal turgor, no rashes or lesions noted. LABS HOSPITAL COURSE: Date of Admission:03/07/20 Date of Discharge: 03/09/20 24 year old female with a past medical history of ovarian cysts, she is not on any home medications. Patient presents to the ED on 03/07/2020 with epigastric & RLQ pain. POD #1 s/p laparoscopic appendectomy. Cleared by surgery and medicine for discharge to home Minutes to complete discharge: 30 Discharge Summary Problems reviewed: Yes Reason For Visit: ACUTE APPENDICITIS Current Active Problems Acute appendicitis (Acute) Appendicitis (Acute) COVID-19 ruled out (Acute) DVT prophylaxis (Acute) Prophylactic measure (Acute) S/P appendectomy (Acute) S/P appy (Acute) UTI (urinary tract infection) (Acute) - Instructions Diet, Activity, Other Instructions: Dear KEENAN RICE, Post Operative Instructions Physical activity Resume your normal everyday activity as tolerated no heavy lifting or exercise until seen by your surgeon. You may walk unlimited amounts of and climb stairs. You may resume driving the car when you feel safe and comfortable behind the wheel. Wound care You have a liquid bandage over your incisions. This will dissolve slowly over the next 7-10 days. If you notice it peeling, avoid picking at it, allow it to come off on its own. When showering do not scrub the incisions. Allow soap and water to pour over them and pat dry afterwards. Diet There are no dietary restrictions. Eat healthy, high-fiber foods. Drink 6 to 8 glasses of liquid each day. This will assist in keeping your bowels are regular. Pain management You may take Tylenol or acetaminophen or Ibuprofen (for example, Motrin, Advil etc.) Any pain prescription medication ordered should be taken as prescribed for moderate to severe pain. You have been prescribed an antibiotic Augmentin 500mg bid (twice per day) for 5 days. Please take as directed. If you are not able to tolerate the medication, please contact your surgeon immediately. Do not discontinue the antibiotics without speaking to your surgeon. We recommend a daily probiotic while taking antibiotics. Call Dr. Pink for any of the following: Severe pain not relieved by medication Fever of 101 or higher Excessive bleeding or drainage on dressing Inability to urinate Call the office at [phone] for a post operative appointment in 7 - 10 days. Referrals: Mary Morgan MD [Primary Care Provider] - Disposition: HOME - Home Medications Comprehensive Discharge Medication List: Ambulatory Orders Amox-Tr/K Cl [Augmentin - 500Mg Tablet] 1 tab PO BID #10 tablet 03/09/20 Problem List - Problems (1) COVID-19 ruled out Code(s): Z03.818 - ENCNTR FOR OBS FOR SUSP EXPSR TO OTH BIOLG AGENTS RULED OUT (2) Appendicitis Assessment/Plan: POD #1 from lap appy. Tolerating regular diet Augmentin x 5 days as per surgery Code(s): K37 - UNSPECIFIED APPENDICITIS (3) S/P appendectomy Code(s): Z90.49 - ACQUIRED ABSENCE OF OTHER SPECIFIED PARTS OF DIGESTIVE TRACT (4) Prophylactic measure Assessment/Plan: Medically cleared for discharge to home Code(s): Z29.9 - ENCOUNTER FOR PROPHYLACTIC MEASURES, UNSPECIFIED This patient is new to me today: Yes Date on this admission: 03/09/20 Emergency Visit: Yes ED Registration Date: 03/07/20 Care time: The patient presented to the Emergency Department on the above date and was hospitalized for further evaluation of their emergent condition. Critical Care patient: No - Discharge Referral Referred to [facility] No
[2020-03-09] MEDS ORDERED: oxyCODONE HCL 5 MG TABLET PO PRN (13:13)
--- NOTE | 2020-03-09 15:21 | OP ---
DATE OF OPERATION: 03/08/2020 PREOPERATIVE DIAGNOSIS: Acute appendicitis. POSTOPERATIVE DIAGNOSIS: Acute appendicitis. PROCEDURE: Laparoscopic appendectomy, lavage. SURGEON: Vitor Pink DO COLLAR SHAPER OPERATOR: There was no assistant family teacher. ANESTHESIOLOGIST: Lisandra Frank MD INTRAOPERATIVE FINDINGS: A thickened inflamed non-perforated appendix with inflammatory fluid, also appeared to have mild endometriosis and a uterine fibroid. SPECIMEN: Appendix. DRAINS: None. COMPLICATIONS: None. BLOOD LOSS: Minimal. DISPOSITION: To recovery room in stable condition. BRIEF HISTORY: This is a 24-year-old female who was admitted to [facility] with acute appendicitis. She was treated medically until her COVID status was determined. She presents now for surgery. PROCEDURE: The patient was placed in a supine position. After general anesthesia was initiated, the abdomen was prepped and draped in sterile fashion. The patient was receiving Zosyn antibiotic. Cano catheter was inserted. Next, a vertical incision was then made infraumbilical with scalpel used to go through skin and subcutaneous tissue. The fascia was lifted with a Rocio clamp and incised vertically. The peritoneum was entered bluntly. A 0 Vicryl stitch was placed across the fascial defect and used to secure the Bobby trocar. Pneumoperitoneum was then created, followed by insertion of a 5-mm 30-degree laparoscope. Two 5-mm trocars were placed, one suprapubic and one in the left lower quadrant. Attention was turned toward the right lower quadrant. The appendix was seen. It was thickened and inflamed with what appeared to be an obstruction at its base. A windows was made at the base. The LigaSure device was used to divide the mesoappendix with multiple welds. The Endo CRISTINA purple-load 45-mm stapler was used to take the base of the appendix with a small portion of cecum in 1 firing. The staple line was inspected, it was intact. There was no bleeding, no breaks, no signs of ischemia. The appendix was placed in a specimen bag, removed through the infraumbilical trocar site. A mild fascial dilatation was required in order to deliver the appendix within the bag and it is possible that the appendix may have been disrupted during this delivery maneuver. The appendix was not clinically perforated, however. At this point, a vigorous lavage was done. The was inflammatory fluid above and below the uterus. There was noted to be what appeared to be small amounts of endometriosis and a fibroid on the uterus. There was inflammatory fluid around the liver as well as the spleen, in small amounts but these were suction irrigated until clear. At this point, trocars were removed under direct visualization and no bleeding was noted. Pneumoperitoneum was then released with the suction device. The fascia at the infraumbilical trocar site was closed with multiple interrupted 0 Vicryl sutures, and the 3 skin incisions were closed with Biosyn, Dermabond dressing was placed. Overall, the patient tolerated the procedure well with no complications. The disposition was to recovery room and then back to the floor, where she would await return of bowel function. She can likely be discharged home within 24 hours with a 5-day course of oral antibiotic. Again, the appendix was felt not to be ruptured. DO TIMBO SINGH/[id number] MTDD
--- NOTE | 2020-03-10 17:58 | PATH ---
Surgical Pathology Report Patient Name: KEENAN RICE Med. Rec. #: [id number] /Age/Gender: 1995 (Age: 24) / F Account: [id number] Location: [facility] MED/SURG Taken: 03/08/2020 Received: 03/09/2020 Reported: 03/10/2020 Physicians: Sami Pelayo M.D. Specimen(s) Received APPENDIX Clinical History Acute appendicitis Final Diagnosis APPENDIX, LAPAROSCOPIC APPENDECTOMY: ACUTE APPENDICITIS AND PERIAPPENDICITIS. Electronically Signed Yesika Dailey M.D. Gross Description Received in formalin, labeled "appendix," is a 7.5 cm. in length vermiform appendix with a stapled margin of resection and moderate attached fat. The serosa is focally hemorrhagic. Sectioning reveals fecalith and focal exudate. The wall of the appendix averages 0.2 cm. in thickness. Agent Ticketing Gate sections are submitted in 2 cassettes. MLSKvng/03/09/2020 sandoc/03/09/2020
== END 2020-03-09 15:12 | disposition home or self-care (01) | DRG 225 ==
LOC: JER 01:19 → JERBED 04:06 → J8W 05:17
PROVIDERS: ADMIT Internal Medicine; ATTEND Nurse Practitioner Acute Care
PROC: 0DTJ4ZZ Resection of Appendix, Percutaneous Endoscopic Approach (ICD-10-PCS; principal; 2020-03-09)
DX: K35.80 Unspecified acute appendicitis (principal); N80.0 Endometriosis of uterus; N39.0 Urinary tract infection, site not specified; D25.9 Leiomyoma of uterus, unspecified; D72.829 Elevated white blood cell count, unspecified; E87.8 Other disorders of electrolyte and fluid balance, not elsewhere classified; R10.31 Right lower quadrant pain
CPT/HCPCS: 36415; 74177-TC; 80053; 81003; 83690; 83735; 84100; 84703; 85025; 85610; 86850; 86900; 86901; 87086; 88304-TC; 93005; 93010; 94760; 99285-25; J0131; Q9967; U0003

== ENCOUNTER 2023-08-11 19:40 | Emergency (ER) | payer BC, OTHER ==
[2023-08-11 19:48] VITALS: BP 117/80; PULSE 79; RESP 16; TEMP 98.1; BMI 35.4
[2023-08-11] MEDS ORDERED: POLYETHYLENE GLYCOL (HEALTHYLAX) 3350 17 GM PACKET PO ONE (22:15)
[2023-08-11] MEDS ORDERED: POLYETHYLENE GLYCOL (HEALTHYLAX) 3350 17 GM PACKET ONE (23:00)
[2023-08-11 23:20] LABS: EPI CELLS 11 /uL (0-25.1); HYALINE CASTS 0 /uL (0-3.1); PH,URINE 5.5 (5.0-8.0); URINE APPEARANCE CLEAR; URINE BACTERIA 188 /uL (0-1359); URINE BILIRUBIN NEGATIVE (NEGATIVE); URINE COLOR YELLOW; URINE GLUCOSE (UA) NEGATIVE (NEGATIVE); URINE KETONE NEGATIVE (NEGATIVE); URINE LEUK ESTERASE 2+ (NEGATIVE); URINE NITRITE NEGATIVE (NEGATIVE); URINE PROTEIN NEGATIVE (NEGATIVE); URINE RBC 26 /uL (0-23.9); URINE UROBILINOGEN 0.2 mg/dL (0.2-1.0); URINE WBC 278 /uL (0-25.8)
[2023-08-11] MEDS ORDERED: CEPHALEXIN MONOHYDRATE 500 MG CAPSULE (UD) PO ONE (23:31)
[2023-08-12] MEDS ORDERED: CEPHALEXIN MONOHYDRATE 500 MG CAPSULE (UD) ONE (00:01)
== END 2023-08-12 00:05 | disposition home or self-care (01) ==
LOC: JER 19:40
DX: O99.611 Diseases of the digestive system complicating pregnancy, first trimester (principal); K59.00 Constipation, unspecified; K62.89 Other specified diseases of anus and rectum; O23.41 Unspecified infection of urinary tract in pregnancy, first trimester; R30.0 Dysuria; R82.71 Bacteriuria; Z3A.01 Less than 8 weeks gestation of pregnancy
CPT/HCPCS: 81003; 87086; 99283-25

== ENCOUNTER 2025-03-13 22:38 | Emergency (ER) | payer BC, OTHER ==
[2025-03-13 22:48] VITALS: RESP 18; BMI 35.9
[2025-03-13] MEDS ORDERED: ACETAMINOPHEN 325 MG TABLET (FP) ONE (23:19)
[2025-03-13] MEDS: ACETAMINOPHEN 325 MG TABLET (FP) PO ONE (23:39)
[2025-03-14 00:32] VITALS: BP 109/51; PULSE 64; TEMP 98.4
== END 2025-03-14 01:50 | disposition home or self-care (01) ==
LOC: JER 22:38
DX: S00.03XA Contusion of scalp, initial encounter (principal); W18.2XXA Fall in (into) shower or empty bathtub, initial encounter
CPT/HCPCS: 70450-TC; 99284-25